=== PATIENT | male | born 1965 | race Caucasian/White ===

== ENCOUNTER 2020-11-30 20:26 | Observation (INO) | payer OTHER, SELFPAY ==
--- NOTE | ~2020-11-30 | US_ITS ---
EXAMINATION: US carotid duplex BI DATE: 12/01/2020 10:08 INDICATION: Gait dysfunction. TECHNIQUE: Grayscale, color Doppler, and pulsed Doppler images of the cervical carotid arteries were obtained. The degree of vessel stenosis is placed in one of the following categories: normal, <50%, 5 0-69%, >=70% but less than near-occlusion, near-occlusion, or total occlusion. Note that percent sten osis relative to normal distal artery lumen diameter is indirectly measured from velocity measurement s as described by Vijay, et al. Radiology 2003; [id number]. COMPARISON: None. FINDINGS: RIGHT: The right common carotid artery (CCA) peak systolic velocity (PSV) is 108 cm/s. The right internal ca rotid artery (ICA) PSV is 72 cm/s. The right ICA end-diastolic velocity (EDV) is 26 cm/s. The right I CA/CCA PSV ratio is 0.7. Grayscale and color Doppler images yield an estimate of <50% diameter reduct ion from plaque in the ICA. There is antegrade flow in the right vertebral artery. LEFT: The left CCA PSV is 105 cm/s. The left ICA PSV is 76 cm/s. The left ICA EDV is 21 cm/s. The left ICA/ CCA PSV ratio is 0.7. Grayscale and color Doppler images yield an estimate of <50% diameter reduction from plaque in the ICA. There is antegrade flow in the left vertebral artery. IMPRESSION: 1. <50% stenosis in the right internal carotid artery. 2. <50% stenosis in the left internal carotid artery. Reviewed, dictated and finalized at location A. RESSED GASES TESTER
--- NOTE | ~2020-11-30 | XR_ITS ---
EXAMINATION: XR elbow LT min 3V DATE: 12/01/2020 12:22 INDICATION: Left elbow pain TECHNIQUE: Anteroposterior, two oblique and lateral views of the left elbow were obtained. COMPARISON: None. FINDINGS: No displaced fracture is identified. An elbow joint effusion is present. The soft tissues a re unremarkable. IMPRESSION: 1. Elbow joint effusion which could reflect radiographically occult fracture. Reviewed, dictated and finalized at location A. BUCKER
--- NOTE | 2020-11-30 20:31 | ADMGEN ---
This patient, Gregorio Acharya, was admitted to Medical Room 254-01. Patient/family oriented to hospital policies and general routines including ID bracelet, bed and alarms, visiting hours, pain management, procedures, bathroom and other care routines, personal items, smoking policy, room service/diet, and visiting hours. Information on how to activate the Rapid Response Team has been discussed. Patient/Family are encouraged to report perceived risks to care and to ask questions if they do not understand what they are told or what they should do.
[2020-11-30 20:41] VITALS: BMI 23.0
[2020-11-30 20:42] VITALS: BP 101/58; PULSE 96; RESP 18; TEMP 36.8; O2SAT 100
[2020-11-30 20:55] VITALS: PULSE 92
--- NOTE | 2020-11-30 21:12 | PC.NURSE ---
Pt sister Alejandra called and stated that he took medication lamootrigine tonight.
--- NOTE | 2020-11-30 22:51 | PM.IMHP ---
H&P: HPI History of Present Illness Date/Time: 11/30/20 22:51 This is a 55-year-old male patient has a past medical history of having seizure disorder. The patient appeared to be very nervous when I started talking to him. His hands were shaking and he was attempting to get out of bed. The patient was a direct admit from [facility]. I had spoke with Dr. landa. The patient has a history of having seizures but tells me he has not had a seizure in a long time and that he still drives. The patient tells me that he has a neurologist at [facility] and is only on 1 medication for seizure disorder. The patient stated that his legs just feel wobbly and that has been bumping into things and he has been holding on to things because he feels like he is going to fall over. The patient stated that this all occurred prior to getting the [employer] COVID vaccine on Friday. However he says that things have gotten worse since he got the vaccine. He feels more weak and had a seizure since he had the COVID vaccine. It was noted that the patient had multiple seizures last night any lives home alone. The patient was slouched down in his wheelchair because he was unable set up because he felt like his seizure was going to come back. He complained of left elbow pain. It was reported that [facility] provider Dr. landa called [facility] who stated that the patient did not need to be transferred there. The patient has not been able to ambulate today. After I did further investigation it was because he was fearful of falling. He stated that his legs feel very weak. He denies having a shuffling walk any denies Parkinson's. He has no complaints of any back pain no urinary incontinence no urinary retention. No fecal retention or incontinence. Patient had elbow pain with positive range of motion. No obvious deformity was noted. His neurologist is Dr. Hollins at [facility]. It was noted that the neurologist the [facility] but refused to accept the patient for transfer. Your provider Dr. landa spoke with Dr. Urieb who agreed to see the patient upon transfer. The patient did have a MRI of the brain which was reported as negative to me. He also had MRI of the spine without MRi of the L-spine without and T-spine without. All reported as negative to me. H&H was slightly low at 11.8 35.3. Platelets 127. Glucose was noted to be 190. CT of the head report was read as the ellis-white matter differential is preserved mild cortical Valium no CT evidence of any acute intracranial process. X-ray of left elbow three views anterior fusion suggestive of supra condyle fracture. . The patient is being admitted for observation on the date of service of 11/30/2020. Chief Complaint: Gait dysfunction and seizure Review of Systems Review of Systems: All systems reviewed & are unremarkable except as noted in HPI and below Constitutional: Constitutional: Reports as per HPI and Reports no additional constitutional complaints Eyes: Eyes: Reports as per HPI and Reports no additional eye complaints ENT: Reports system reviewed and no additional complaints, except as documented and Reports Normal hearing present Cardiovascular: Cardiovascular: Reports no additional cardiovascular complaints Respiratory: Respiratory: Reports no additional respiratory complaints and Reports no additional respiratory complaints Gastrointestinal: Gastrointestinal: Reports as per HPI and Reports no additional gastrointestinal complaints Musculoskeletal: Musculoskeletal: Reports no additional musculoskeletal complaints Integumentary/Breasts: Skin/Breast: Reports system reviewed and no additional complaints, except as docu and Reports as per HPI Neurologic: Reports system reviewed and no additional complaints, except as documented, Reports as per HPI and Reports Normal hearing present Psychiatric: Psychiatric: Reports no additional psychiatric complaints and Reports as per H
[2020-11-30 23:25] LABS: Eosinophils Absolute Auto 0.1 K/mm3 (0-0.3); Eosinophils Percent Auto 1.9 % (0-4.4); Hematocrit 32.9 % (42.0-52.0); Hemoglobin 10.9 g/dL (14.0-18.0); Immature Granulocyte Absolute 0.01 K/mm3 (0.00-0.031); Immature Granulocyte Percent A 0.2 % (0-0.5); Lymphocytes Absolute Auto 1.41 K/mm3 (0.9-3.2); Lymphocytes Percent Auto 26.4 % (18.3-44.2); Mean Corpuscular HGB Conc 33.1 g/dl (32-36); Mean Corpuscular Hemoglobin 31.1 pg (26-34); Mean Corpuscular Volume 93.7 fl (80-100); Mean Platelet Volume 9.1 fl (7.4-10.4); Monocytes Absolute Auto 0.7 K/mm3 (0.1-0.6); Monocytes Percent Auto 13.8 % (2.6-8.5); Neutrophils Absolute Auto 3.1 K/mm3 (1.3-6.7); Neutrophils Percent Auto 57.7 % (45.5-73.1); Platelet Count Result 119 k/mm3 (150-375); Red Blood Count 3.51 M/mm3 (4.6-6.20); Red Cell Distribution Width 13.3 % (11.5-14.5); White Blood Count 5.4 K/mm3 (4.5-10.0)
[2020-11-30 23:36] LABS: Potassium 3.8 mmol/L (3.4-5.0)
[2020-11-30 23:40] LABS: Anion Gap 1 mmol/L (8-16); Blood Urea Nitrogen 14 mg/dL (9-20); Calcium 8.6 mg/dL (8.4-10.2); Carbon Dioxide 35 mmol/L (22-30); Chloride 103 mmol/L (98-107); Estimated CRCL calculation 44 ml/min; Estimated Glomerular Filt Rate > 60; Glucose 117 mg/dL (75-110); Magnesium 1.8 mg/dL (1.6-2.3); Sodium 139 mmol/L (137-145)
[2020-12-01] VITALS (7 sets, daily range): BP systolic 100–126; BP diastolic 57–61; PULSE 75–94; RESP 16–20; TEMP 36.4–37.2; O2SAT 94–100
--- NOTE | 2020-12-01 | ECHO_ITS ---
Patient Info Name: Gregorio Acharya Age: 55 years : 1965 Gender: Male Ht: 60 in Wt: 117 lbs BSA: 1.51 m2 HR: 79 bpm BP: 102 / 61 mmHg Technical Quality: Good Exam Date: 12/01/2020 11:29 AM Exam Location: [facility] Pulmonary Patient Status: Inpatient Admit Date: 11/30/2020 Staff Ordering Physician: Marianne Stack NP [employer]: Jhonny Borges RDCS, RT Attending Provider: Vi Thakur PA-C Referring Physician: Seda CAMPOS; Exam Type: CA echo doppler color flow Study Info Indications R53.1 - Weakness Complete two-dimensional, color flow and Doppler transthoracic echocardiogram is performed. Strain analysis performed. Summary 1. Complete two-dimensional, color flow and Doppler transthoracic echocardiogram is performed. 2. Left ventricular chamber dimension is mildly enlarged. 3. Left ventricular systolic function is mildly reduced, estimated at 45-50%. 4. The left ventricular diastolic function is normal. 5. Global longitudinal strain is abnormal at -15.1. 6. Left atrial chamber dimension is mildly enlarged. 7. There is trace aortic valve regurgitation. 8. There is trace tricuspid valve regurgitation. 9. There is trace pulmonic regurgitation. Left Ventricle Tissue doppler is not performed. Global longitudinal strain is abnormal at -15.1. Left ventricular chamber dimension is mildly enlarged. Left ventricular systolic function is mildly reduced, estimated at 45-50%. The left ventricular diastolic function is normal. Right Ventricle Right ventricular chamber dimension is normal. Right ventricular systolic function is normal. Left Atria Left atrial chamber dimension is mildly enlarged. Right Atria Right atrial chamber dimension is normal. Aortic Valve The aortic valve is trileaflet. There is no aortic valve stenosis. There is trace aortic valve regurgitation. Pulmonic Valve There is trace pulmonic regurgitation. Mitral Valve There is no mitral valve stenosis. There is no mitral valve regurgitation. Tricuspid Valve RVSP is not calculated due to an inadequate TR jet. There is trace tricuspid valve regurgitation. Pericardium/Pleural There is no pericardial effusion. Inferior Vena Cava Normal inferior vena cava with >50% collapse upon inspiration consistent with normal right atrial pressure, 5 mmHg. Aorta The aortic root size at the sinus of Valsalva is normal. Left Ventricular Outflow Tract Name Value Normal LVOT 2D LVOT Diameter 2.2 cm Pulmonic Valve Name Value Normal PV Regurgitation Doppler NH Peak End Diastolic Velocity 113 cm/s Tricuspid Valve Name Value Normal Estimated PAP/RSVP RA Pressure
[2020-12-01 01:44] LABS: Add Urine Microscopic? NO; Appearance Urine Clear (Clear); Bilirubin Urine Negative (Negative); Blood Urine Negative (Negative); Color Urine Yellow (Yellow); Glucose Urine UA Negative (Negative); Ketones Urine Negative (Negative); Leukocyte Esterase Ur Negative LEU/UL (Negative); Nitrate Urine Negative (Negative); Protein Urine Negative (Negative); Specific Grav Ur 1.018 (1.001-1.035); Urobilinogen Urine Negative mg/dL (<2.0)
[2020-12-01 02:25] LABS: Amphetamine Screen Urine Negative (Negative); Barbiturate Screen Urine Negative (Negative); Benzodiazepines Screen Urine Negative (Negative); Cannabinoid Screen Urine Negative (Negative); Cocaine Screen Urine Negative (Negative); Methadone Screen Urine Negative (Negative); Opiate Screen Urine Negative (Negative); Phencyclidine Screen Urine Negative (Negative)
[2020-12-01 05:27] LABS: Basophils Percent Auto 0.2 % (0.2-1.2); Eosinophils Absolute Auto 0.1 K/mm3 (0-0.3); Eosinophils Percent Auto 2.5 % (0-4.4); Hematocrit 32.5 % (42.0-52.0); Hemoglobin 10.7 g/dL (14.0-18.0); Immature Granulocyte Absolute 0.01 K/mm3 (0.00-0.031); Immature Granulocyte Percent A 0.2 % (0-0.5); Lymphocytes Absolute Auto 1.66 K/mm3 (0.9-3.2); Lymphocytes Percent Auto 34.4 % (18.3-44.2); Mean Corpuscular HGB Conc 32.9 g/dl (32-36); Mean Corpuscular Hemoglobin 30.6 pg (26-34); Mean Corpuscular Volume 92.9 fl (80-100); Mean Platelet Volume 9.4 fl (7.4-10.4); Monocytes Absolute Auto 0.6 K/mm3 (0.1-0.6); Monocytes Percent Auto 12.2 % (2.6-8.5); Neutrophils Absolute Auto 2.4 K/mm3 (1.3-6.7); Neutrophils Percent Auto 50.5 % (45.5-73.1); Platelet Count Result 124 k/mm3 (150-375); Red Cell Distribution Width 13.4 % (11.5-14.5); White Blood Count 4.8 K/mm3 (4.5-10.0)
[2020-12-01 05:48] LABS: Alanine Aminotransferase 32 U/L (4-50); Albumin Level 3.1 g/dL (3.5-5.1); Alkaline Phosphatase 55 U/L (38-126); Anion Gap 2 mmol/L (8-16); Aspartate Amino Transferase 63 U/L (17-59); Bilirubin,Total 0.4 mg/dL (0.2-1.3); Blood Urea Nitrogen 11 mg/dL (9-20); Calcium 8.4 mg/dL (8.4-10.2); Carbon Dioxide 33 mmol/L (22-30); Chloride 103 mmol/L (98-107); Estimated CRCL calculation 58 ml/min; Estimated Glomerular Filt Rate > 60; Glucose 92 mg/dL (75-110); Lactic Acid Reflex 0.6 mmol/L (0.7-2.1); Potassium 3.9 mmol/L (3.4-5.0); Sodium 138 mmol/L (137-145)
[2020-12-01 06:31] LABS: Thyroid Stimulating Hormone Reflex 0.405 uIU/mL (0.465-4.68)
[2020-12-01 07:34] LABS: Free T4 Free Thyroxine Reflex 0.89 ng/dL (0.78-2.19)
[2020-12-01 08:41] LABS: Total Triiodothyronine (T3) 1.92 NG/ML (0.97-1.69)
[2020-12-01] MEDS: lamoTRIgine 100 MG TABLET PO ×2 (08:51→20:13)
[2020-12-01] MEDS: lamoTRIgine 25 MG TABLET 50 MG PO ×2 (08:51→20:13)
--- NOTE | 2020-12-01 15:08 | WPDNEUROLOGY ---
Neurology EEG Report General Information Date of Study: 12/01/20 TEST eeg DIAGNOSIS recurrent seizures CONDITION OF RECORDING awake ,drowsy and sleep EEG NUMBER 21 CLINICAL HISTORY patient has a history of seizures. He sees a neurologist at [facility]. He came into the emergency room with complaints of seizures. EEG DESCRIPTION Basic resting occipital frequency consists of large amount of well-organized low to medium voltage 8 to 9 hertz per second alpha admixed with low to medium voltage 5 to 7 hertz per second theta activity. bilateral symmetrical sleep spindles are seen during sleep .hyperventilation not done. Photic stimulation not done. Non paroxysmal. Nonfocal. Nonlateralizing. IMPRESSION No significant abnormalities noted
--- NOTE | 2020-12-01 15:42 | WPDNEURCNPN ---
Assessment and Plan Assessment and plan (1) Neurologic gait dysfunction: Code(s): R26.9 - Unspecified abnormalities of gait and mobility Status: Acute (2) Anxiety: Code(s): F41.9 - Anxiety disorder, unspecified Status: Acute (3) Seizure disorder: Code(s): G40.909 - Epilepsy, unspecified, not intractable, without status epilepticus Status: Chronic Additional Plan status post COVID shot, complain of generalized weakness,difficulties in ambulation in a person who is known to have seizure disorder and has been taking lamotrigine 150 twice a day,question was raised regarding the possibility of post immunization syndrome.at this stage patient looks completely stable, will continue the lamotrigine as such and observe Consult date: 12/01/20 Time Seen: 16:00 HPI: Gregorio Acharya is a 55 year old maleAdmitted to the hospital through the emergency room for the complaints of [place] when he was attempting to get out of bed he was a direct admit from [facility] Emergency room patient is known to have seizure disorder but is still he drives he is being followed and the [facility] clinical be KARI and has been taking only 1 medication for seizure disorder that is lamotrigine 150 mg each 2 tablets daily he reported that his legs felt wobbly and he was bumping into things after getting the COVID Scharff he was transfer from the emergency room to this hospital rachel show that he is not developing began [place] syndrome post vaccination Review of Systems Review of Systems: All systems reviewed & are unremarkable except as noted in HPI and below PMFSH Past Medical History Medical History Seizure disorder Surgical History Surgical History Status post LASIK surgery of both eyes Family History Family History Mother Breast cancer Father Throat cancer Social History Social History Social History: the patient has never been . He has no children. His sister is a durable power deputy prosecuting attorney for healthcare. The patient desires to be a full code. Patient lives in house by himself. 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 The patient states that he is a lifelong nonsmoker. He denies any alcohol, marijuana, or illicit drug use. Smoking status: Never smoker Alcohol intake: never Substance use: never Spiritual care concerns: No Meds Home Medications and Allergies Home Medications Medication Instructions Recorded Confirmed Type lamotrigine 150 mg PO BID 11/30/20 11/30/20 History Allergies Allergy/AdvReac Type Severity Reaction Status Date / Time No Known Allergies Allergy Unknown Unverified 01/07/17 08:48 Vital Signs Vital Signs - 24 hr 11/30/20 20:42 11/30/20 20:55 12/01/20 00:00 Temperature 36.8 C 37.2 C Pulse Rate 96 92 84 Respiratory Rate 18 18 Blood Pressure 101/58 L 103/59 L Pulse Oximetry 100 94 12/01/20 04:00 12/01/20 08:00 12/01/20 12:00 Temperature 36.9 C 36.9 C 36.7 C Pulse Rate 81 84 86 Respiratory Rate 20 16 16 Blood Pressure 102/61 126/58 L 114/57 L Pulse Oximetry 95 99 100 Exam Const: General: cooperative, comfortable, no acute distress, anxious and confusion Nutritional Appearance: average body habitus and thin Orientation/consciousness: oriented to person and oriented to place Limitations: behavioral limitations HENMT: Head: normocephalic Ears: hearing grossly normal bilaterally General nose exam: No nasal discharge present Face and sinus: normal facial exam Mouth: Yes Normal oral and palatal mucosa present Eyes: General: appearance normal, both eyes and all related structures Visual Forman: normal visual forman by confrontation Alignment and Position: alignment normal Periorbital: periorbital findings normal Eyelids: e
--- NOTE | 2020-12-01 15:56 | PM.IMPN ---
Progress Note: A&P Assessment and Plan (1) Seizure disorder: Code(s): G40.909 - Epilepsy, unspecified, not intractable, without status epilepticus Status: Chronic Assessment and Plan: EEG demonstrated no significant abnormalities. He follows with Dr. Obrien at [facility] for primary neurology. It is likely that the vaccine caused fatigue and this may have provoked his seizures. I suspect that he was post-ictal yesterday which may have contributed to his gait dysfunction which has improved. Continue lamotrigine Continue ativan PRN Continue seizure precautions (2) Neurologic gait dysfunction: Code(s): R26.9 - Unspecified abnormalities of gait and mobility Status: Acute Assessment and Plan: Significantly improved. He reports that he had a very difficult time walking yesterday and had to scoot on the floor with his elbow. He had imaging at outside hospital prior to transfer including: CT brain with no acute pathology. MRI brain without evidence of mass, acute infarct, or other adverse process. MRI cervical spine showed no fracture but did show focal syringomyelia measuring 7mm longitudinal at C5 level, 2mm anterolisthesis of C6 on C7 without facet dislocation, and degenerative disc disease with significant stenosis at C4-C5 and C6-C7, mild to moderate canal stenosis at C3 to C6. MRI thoracic spine showed no fracture, mild degenerative disc disease, and thoracic kyphosis. MRI lumbar spine showed no fracture and degenerative disc disease and facet arthropathy without significant stenosis at L5-S1. Findings discussed with Dr. Montero who does not feel this is contributing to current symptoms. I suspect this may have been secondary to a post-ictal state as he was felt to have a seizure at work Friday by his coworkers and several seizures Friday while at home. He was up walking with the walker today. He does have some chronic balance issues but feels that he is getting close to his baseline. Continue PT/OT Neurology is following with input appreciated (3) Abnormal TSH: Code(s): R79.89 - Other specified abnormal findings of blood chemistry Status: Acute Assessment and Plan: TSH 0.405 with free T4 0.89 and total T3 1.92 on labs from 12/01. Plan for repeat TSH w/ reflex in 4-6 weeks (4) Occult fracture of elbow: Code(s): S42.409A - Unspecified fracture of lower end of unspecified humerus, initial encounter for closed fracture Status: Acute Assessment and Plan: He reports having to use his left elbow to move around his house. Plain film of the left elbow demonstrates elbow joint effusion which could reflect radiographically occult fracture. Sling placed Orthopedic surgery consulted and input appreciated Continue analgesics as needed (5) HFrEF (heart failure with reduced ejection fraction): Code(s): I50.20 - Unspecified systolic (congestive) heart failure Status: Acute Assessment and Plan: Echocardiogram performed 12/01/20 demonstrated EF mildly reduced at 45-50% with normal diastolic function. He appears euvolemic at this time. BP seems to run on the low side but will start low-dose metoprolol and lisinopril and observe to see how he tolerates this He will need to follow-up with cardiology outpatient (6) Syringomyelia: Code(s): G95.0 - Syringomyelia and syringobulbia Status: Acute Assessment and Plan: MRI cervical spine showed no fracture but did show focal syringomyelia measuring 7mm longitudinal at C5 level. Discussed with Dr. Montero who does not feel this is contributing to his current symptoms. Neurology following Will need follow-up with primary neurologist and consideration for referral to neurosurgery (7) Degenerative disc disease: Status: Acute Assessment and Plan: Cervical, thoracic, and lumbar on MRI performed at outside facility. Significant stenosis at C4-C5 and C
[2020-12-02] VITALS (9 sets, daily range): BP systolic 103–137; BP diastolic 68–83; PULSE 65–78; RESP 16–21; TEMP 36.3–36.6; O2SAT 99–100
[2020-12-02 05:49] LABS: Hematocrit 34.6 % (42.0-52.0); Hemoglobin 11.2 g/dL (14.0-18.0); Mean Corpuscular HGB Conc 32.4 g/dl (32-36); Mean Corpuscular Hemoglobin 29.7 pg (26-34); Mean Corpuscular Volume 91.8 fl (80-100); Mean Platelet Volume 9.6 fl (7.4-10.4); Platelet Count Result 157 k/mm3 (150-375); Red Blood Count 3.77 M/mm3 (4.6-6.20)
[2020-12-02 06:04] LABS: Alanine Aminotransferase 34 U/L (4-50); Albumin Level 3.4 g/dL (3.5-5.1); Alkaline Phosphatase 53 U/L (38-126); Anion Gap 0 mmol/L (8-16); Aspartate Amino Transferase 70 U/L (17-59); Bilirubin,Total 0.4 mg/dL (0.2-1.3); Blood Urea Nitrogen 13 mg/dL (9-20); Calcium 8.8 mg/dL (8.4-10.2); Carbon Dioxide 37 mmol/L (22-30); Chloride 102 mmol/L (98-107); Estimated CRCL calculation 64 ml/min; Estimated Glomerular Filt Rate > 60; Glucose 87 mg/dL (75-110); Potassium 3.8 mmol/L (3.4-5.0); Sodium 139 mmol/L (137-145)
[2020-12-02 06:06] LABS: Transferrin 210 mg/dL (206-381)
[2020-12-02 06:11] LABS: Iron 107 ug/dL (49-181)
[2020-12-02 06:21] LABS: Percent Iron Saturation 42 % (20-50)
[2020-12-02] MEDS: lisinopriL 2.5 MG TABLET PO (08:13)
[2020-12-02] MEDS: lamoTRIgine 25 MG TABLET 50 MG PO ×2 (08:13→21:10)
[2020-12-02] MEDS: lamoTRIgine 100 MG TABLET PO ×2 (08:13→21:09)
[2020-12-02] MEDS: METOPROLOL SUCCINATE EXT REL 12.5 MG TABCR PO (08:13)
--- NOTE | 2020-12-02 09:32 | PM.IMPN ---
Progress Note: A&P Assessment and Plan (1) Seizure disorder: Code(s): G40.909 - Epilepsy, unspecified, not intractable, without status epilepticus Status: Chronic Assessment and Plan: EEG demonstrated no significant abnormalities. He follows with Dr. Obrien at [facility] for primary neurology. It is likely that the vaccine caused fatigue resulting in a provoked seizure. I suspect that he was post-ictal 11/30 causing gait dysfunction which has resolved. Continue lamotrigine. Discussed with Dr. Izquierdo refrigeration mechanic helper for Dr. Obrien who agreed that no dose adjustment is required at this time. Continue ativan PRN Continue seizure precautions (2) Neurologic gait dysfunction: Code(s): R26.9 - Unspecified abnormalities of gait and mobility Status: Acute Assessment and Plan: Significantly improved. He reports that he had a very difficult time walking yesterday and had to scoot on the floor with his elbow. CT brain, MRI brain, and MRI cervical, thoracic, and lumbar spine negative for acute pathology. I suspect this was secondary to a post-ictal state as he was felt to have a seizure at work Friday by his coworkers and several seizures Friday while at home. He is up walking in the halls and doing very well. Continue PT/OT. Discussing outpatient therapy and home with family vs. rehab per PT recommendations. Discuss with care coordination who is going to speak with the family. Neurology is following with input appreciated (3) Abnormal TSH: Code(s): R79.89 - Other specified abnormal findings of blood chemistry Status: Acute Assessment and Plan: TSH 0.405 with free T4 0.89 and total T3 1.92 on labs from 12/01. Plan for repeat TSH w/ reflex in 4-6 weeks (4) Occult fracture of elbow: Code(s): S42.409A - Unspecified fracture of lower end of unspecified humerus, initial encounter for closed fracture Status: Acute Assessment and Plan: He reports having to use his left elbow to move around his house on since he could not walk due to post-ictal state. Plain film of the left elbow demonstrates elbow joint effusion which could reflect radiographically occult fracture. Sling placed Orthopedic surgery consulted and input appreciated Continue analgesics as needed (5) HFrEF (heart failure with reduced ejection fraction): Code(s): I50.20 - Unspecified systolic (congestive) heart failure Status: Acute Assessment and Plan: Echocardiogram performed 12/01/20 demonstrated EF mildly reduced at 45-50% with normal diastolic function. He appears euvolemic at this time. BP seems to run on the low side. Initiated low-dose metoprolol and lisinopril and will observe to see how he tolerates this. He will need to follow-up with his PCP and cardiology outpatient (6) Syringomyelia: Code(s): G95.0 - Syringomyelia and syringobulbia Status: Acute Assessment and Plan: MRI cervical spine showed no fracture but did show focal syringomyelia measuring 7mm longitudinal at C5 level. Discussed with Dr. Montero who does not feel this is contributing to his current symptoms. Neurology following Will need follow-up with primary neurologist and consideration for referral to neurosurgery Discussed with Dr. Izquierdo, neurologist refrigeration mechanic helper for his primary neurologist, Dr. Obrien, who notes this is a chronic finding, seen on his prior imaging, with no need for acute intervention. He will continue follow-up with Dr. Obrien and I discussed concerning symptoms to watch for with the patient. (7) Degenerative disc disease: Status: Acute Assessment and Plan: Cervical, thoracic, and lumbar on MRI performed at outside facility. Significant stenosis at C4-C5 and C6-C7, mild to moderate canal stenosis at C3 to C6, mild thoracic degenerative disc disease, and degenerative disc disease and facet arthropathy without significant stenosis at L5-S1.
--- NOTE | 2020-12-02 11:31 | PM.CNOR ---
Assessment and Plan Additional Plan Patient is a 55-year-old gentleman who was admitted in transfer from [place] for intractable seizures. He has been stabilized. The had an EEG and consultation with Dr. Dooley the neurologist here. On admission he was noted to have some abrasions and some mild posterior swelling at the left elbow. He had x-rays which demonstrated an anterior effusion with elevation of the fat pad but I could not see a fracture on the multiple views of the left elbow. Patient does not think he fell but he believes that he was crawling during his seizures and injured his left elbow at that time but it is not clear and he cannot rule out having traumatized at more than just crawling on his elbow. He still has some agitation and he speaks very quickly and repeats himself frequently. Was asked to see him about his elbow effusion. I reviewed the x-ray and the findings are as discussed above. On exam today he has range of motion from 0-140 degrees. He has some soreness in the elbow at 0 and at 140 ?. He had noted discomfort with range of motion within those extremes he had full pronation supination without discomfort. I could not identify any areas of focal tenderness in the elbow. He does have some faint ecchymosis over the olecranon bursa and some very slight swelling in that area and they are 3 tiny abrasions about a quarter-inch each in 3 different areas around the posterior elbow. There is no instability to valgus or varus stress. He is using his hands symmetrically and rather rigorously while he is speaking moving his hands accordingly. He had a 2+ radial artery pulse. He denied any shoulder or wrist pain he had normal sensation left hand had normal function of his wrist and digits. My impression is that he has a traumatic effusion the elbow and as such he may have an occult fracture. I have discussed with him that bearing weight on the left hand or lifting pushing pulling with the left hand may have adverse consequences if he has a nondisplaced fracture. The fracture may become displaced or may go on to delayed or nonunion. As such I have recommended that he use the arm sling which I personally applied and confirmed that it fits him well. I showed him how to use the thumb strap to keep the sling in place. I will ask physical therapy to work with him with a one-handed walker. He is still little bit unsteady on his feet and needs some support. Naif walker can also be used with his right hand. I would like to see him in the office in about 9 days and obtain new x-rays of the left elbow at that time. I do not think he will require any pain medication for the elbow as he is not having much discomfort now and if he has increased pain it would indicate the is probably using a too much. History of Present Illness HPI Consult date: 12/02/20 Chief complaint: Seizure disorder, ambulatory dysfunction [facility] Past Medical History Medical History (Updated 12/02/20 @ 09:08 by Vi Thakur PA-C) Degenerative disc disease HFrEF (heart failure with reduced ejection fraction) Echo from 12/01/20 demonstrates EF 45-50% and normal diastolic function Seizure disorder Surgical History Surgical History Status post LASIK surgery of both eyes Family History Family History Mother Breast cancer Father Throat cancer Social History Social History Social History: the patient has never been . He has no children. His sister is a durable power commercial real estate attorney for healthcare. The patient desires to be a full code. Patient lives in house by himself. 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 The patient states that he is a lifelong nonsmoker. He denies any alcohol, marijuana, or illicit drug use. Smoking status: Never smoker Alcohol intake: never Substance use: ne
[2020-12-03] VITALS (8 sets, daily range): BP systolic 92–150; BP diastolic 50–82; PULSE 65–86; RESP 16–20; TEMP 36.1–36.9; O2SAT 97–100
--- NOTE | 2020-12-03 03:06 | PC.NURSE ---
Daylight Savings Time For Daylight Savings Time Ending in the Fall - Clocks are moved back. For Daylight Savings Time Beginning in the Spring - Clocks are moved ahead. For [facility], the time of change occurs at 0200 hrs. Time is taken from the paymaster of purses. This entry on the patient's chart recognizes the change in time reflected during documentation. Example: 2 entries for vital signs may be charted for 0200 hrs.
[2020-12-03] MEDS: lamoTRIgine 100 MG TABLET PO ×2 (08:39→20:44)
[2020-12-03] MEDS: METOPROLOL SUCCINATE EXT REL 12.5 MG TABCR PO (08:39)
[2020-12-03] MEDS: lamoTRIgine 25 MG TABLET 50 MG PO ×2 (08:39→20:44)
[2020-12-03] MEDS: lisinopriL 2.5 MG TABLET PO (08:39)
--- NOTE | 2020-12-03 12:05 | PM.IMPN ---
Progress Note: A&P Assessment and Plan (1) Need for discharge planning: Status: Acute Assessment and Plan: Planning for rehab at discharge given PT/OT recommendations, patient preference and motivation to receive rehab to help gait and get back to working as soon as possible. Care coordination is working on placement COVID-19 test ordered for placement purposes (2) Seizure disorder: Code(s): G40.909 - Epilepsy, unspecified, not intractable, without status epilepticus Status: Chronic Assessment and Plan: EEG demonstrated no significant abnormalities. He follows with Dr. Obrien at [facility] for primary neurology. It is likely that the vaccine caused fatigue resulting in a provoked seizure. I suspect that he was post-ictal 11/30 causing gait dysfunction which has resolved. Continue lamotrigine. Discussed with Dr. Izquierdo home economics expert for Dr. Obrien who agreed that no dose adjustment is required at this time. Continue ativan PRN Continue seizure precautions No driving for at least 3 months and until cleared from neurology (3) Neurologic gait dysfunction: Code(s): R26.9 - Unspecified abnormalities of gait and mobility Status: Acute Assessment and Plan: Significantly improved. He reports that he had a very difficult time walking yesterday and had to scoot on the floor with his elbow. CT brain, MRI brain, and MRI cervical, thoracic, and lumbar spine negative for acute pathology. I suspect this was secondary to a post-ictal state as he was felt to have a seizure at work Friday by his coworkers and several seizures Friday while at home. He is up walking in the halls and doing very well. Continue PT/OT. Rehab is recommended and the patient and family prefer rehab. Neurology is following with input appreciated (4) Abnormal TSH: Code(s): R79.89 - Other specified abnormal findings of blood chemistry Status: Acute Assessment and Plan: TSH 0.405 with free T4 0.89 and total T3 1.92 on labs from 12/01. Plan for repeat TSH w/ reflex in 4-6 weeks (5) Occult fracture of elbow: Code(s): S42.409A - Unspecified fracture of lower end of unspecified humerus, initial encounter for closed fracture Status: Acute Assessment and Plan: He reports having to use his left elbow to move around his house on since he could not walk due to post-ictal state. Plain film of the left elbow demonstrates elbow joint effusion which could reflect radiographically occult fracture. Sling placed Orthopedic surgery consulted and input appreciated Continue analgesics as needed (6) HFrEF (heart failure with reduced ejection fraction): Code(s): I50.20 - Unspecified systolic (congestive) heart failure Status: Acute Assessment and Plan: Echocardiogram performed 12/01/20 demonstrated EF mildly reduced at 45-50% with normal diastolic function. He appears euvolemic at this time. Low dose metoprolol and lisinopril initiated and his blood pressure is tolerating this well He will need to follow-up with his PCP and cardiology outpatient. I discussed echo findings with the patient and his sister today. (7) Syringomyelia: Code(s): G95.0 - Syringomyelia and syringobulbia Status: Acute Assessment and Plan: MRI cervical spine showed no fracture but did show focal syringomyelia measuring 7mm longitudinal at C5 level. Discussed with Dr. Montero who does not feel this is contributing to his current symptoms. Neurology following Will need follow-up with primary neurologist and consideration for referral to neurosurgery Discussed with Dr. Izquierdo, neurologist home economics expert for his primary neurologist, Dr. Obrien, who notes this is a chronic finding, seen on his prior imaging, with no need for acute intervention. He will continue follow-up with Dr. Obrien and I discussed concerning symptoms to watch for with the patient. (8) Degenerative
[2020-12-04 01:45] VITALS: BP 106/74; PULSE 68; RESP 18; TEMP 36.2; O2SAT 97
[2020-12-04 06:31] VITALS: BP 108/71; PULSE 74; RESP 16; TEMP 36.6; O2SAT 98
[2020-12-04 08:14] VITALS: PULSE 68
[2020-12-04] MEDS: METOPROLOL SUCCINATE EXT REL 12.5 MG TABCR PO (08:14)
[2020-12-04] MEDS: lamoTRIgine 25 MG TABLET 50 MG PO ×2 (08:14→20:55)
[2020-12-04] MEDS: lamoTRIgine 100 MG TABLET PO ×2 (08:14→20:56)
[2020-12-04] MEDS: lisinopriL 2.5 MG TABLET PO (08:15)
[2020-12-04 12:00] VITALS: BP 106/68; PULSE 77; RESP 16; TEMP 36.7; O2SAT 100
[2020-12-04 12:59] LABS: SARS-CoV-2 RNA PCR Negative
--- NOTE | 2020-12-04 15:56 | PM.IMPN ---
Progress Note: A&P Assessment and Plan (1) Need for discharge planning: Status: Acute Assessment and Plan: Planning for rehab at discharge given PT/OT recommendations, patient preference and motivation to receive rehab to help gait and get back to working as soon as possible. Care coordination is working on placement [facility] is first preference if this is approved by his insurance. Insurance authorization is pending. (2) Seizure disorder: Code(s): G40.909 - Epilepsy, unspecified, not intractable, without status epilepticus Status: Chronic Assessment and Plan: EEG demonstrated no significant abnormalities. He follows with Dr. Obrien at [facility] for primary neurology. It is likely that the vaccine caused fatigue resulting in a provoked seizure. I suspect that he was post-ictal 11/30 causing gait dysfunction which has resolved. Continue lamotrigine. Discussed with Dr. Izquierdo at [facility], [place] for Dr. Obrien, who agreed that no dose adjustment is required at this time. Continue ativan PRN Continue seizure precautions No driving for at least 3 months and until cleared from neurology (3) Neurologic gait dysfunction: Code(s): R26.9 - Unspecified abnormalities of gait and mobility Status: Acute Assessment and Plan: Significantly improved. He reported that he had a very difficult time walking the day prior to admission and had to scoot on the floor with his elbow. CT brain, MRI brain, and MRI cervical, thoracic, and lumbar spine negative for acute pathology. I suspect this was secondary to a post-ictal state as he was felt to have a seizure at work Friday by his coworkers and several seizures Friday while at home. He is up walking in the halls and doing very well. Continue PT/OT. Rehab is recommended and the patient and family prefer rehab. Neurology is following with input appreciated (4) Abnormal TSH: Code(s): R79.89 - Other specified abnormal findings of blood chemistry Status: Acute Assessment and Plan: TSH 0.405 with free T4 0.89 and total T3 1.92 on labs from 12/01. Plan for repeat TSH w/ reflex in 4-6 weeks (5) Occult fracture of elbow: Code(s): S42.409A - Unspecified fracture of lower end of unspecified humerus, initial encounter for closed fracture Status: Acute Assessment and Plan: He reports having to use his left elbow to move around his house on since he could not walk due to post-ictal state. Plain film of the left elbow demonstrates elbow joint effusion which could reflect radiographically occult fracture. Sling placed Orthopedic surgery consulted and input appreciated. Orthopedic surgery recommends continued arm sling and thumb strap, PT with one-handed walker or ralph walker, and follow-up 12/11/20 for repeat x-rays of the left elbow. Continue analgesics as needed (6) HFrEF (heart failure with reduced ejection fraction): Code(s): I50.20 - Unspecified systolic (congestive) heart failure Status: Acute Assessment and Plan: Echocardiogram performed 12/01/20 demonstrated EF mildly reduced at 45-50% with normal diastolic function. He appears euvolemic at this time. Low dose metoprolol and lisinopril initiated. BP on the softer side. Will need to see how he tolerates this. He will need to follow-up with his PCP and cardiology outpatient. I discussed echo findings with the patient and his sister. (7) Syringomyelia: Code(s): G95.0 - Syringomyelia and syringobulbia Status: Acute Assessment and Plan: MRI cervical spine showed no fracture but did show focal syringomyelia measuring 7mm longitudinal at C5 level. Discussed with Dr. Montero who does not feel this is contributing to his current symptoms. Neurology following Will need follow-up with primary neurologist and consideration for referral to neurosurgery Discussed with Dr. Izquierdo, neurologist [place] for his primary n
[2020-12-04 16:00] VITALS: BP 112/68; PULSE 79; RESP 16; TEMP 36.9
[2020-12-04] MEDS: ENOXAPARIN 40 MG/0.4 ML SYRINGE SUB-Q (20:56)
[2020-12-04 22:00] VITALS: BP 150/67; PULSE 78; RESP 20; TEMP 36.6; O2SAT 99
[2020-12-05 02:06] VITALS: BP 131/77; PULSE 64; RESP 21; TEMP 36.2; O2SAT 100
[2020-12-05 05:40] LABS: Hemoglobin 11.2 g/dL (14.0-18.0); Mean Corpuscular HGB Conc 32.9 g/dl (32-36); Mean Corpuscular Hemoglobin 30.2 pg (26-34); Mean Corpuscular Volume 91.6 fl (80-100); Mean Platelet Volume 9.4 fl (7.4-10.4); Platelet Count Result 242 k/mm3 (150-375); Red Blood Count 3.71 M/mm3 (4.6-6.20); Red Cell Distribution Width 12.9 % (11.5-14.5); White Blood Count 5.3 K/mm3 (4.5-10.0)
[2020-12-05 05:51] LABS: Alanine Aminotransferase 35 U/L (4-50); Albumin Level 3.2 g/dL (3.5-5.1); Alkaline Phosphatase 52 U/L (38-126); Anion Gap -2 mmol/L (8-16); Aspartate Amino Transferase 35 U/L (17-59); Bilirubin,Total 0.2 mg/dL (0.2-1.3); Blood Urea Nitrogen 9 mg/dL (9-20); Calcium 8.7 mg/dL (8.4-10.2); Carbon Dioxide 38 mmol/L (22-30); Chloride 103 mmol/L (98-107); Estimated CRCL calculation 64 ml/min; Estimated Glomerular Filt Rate > 60; Glucose 84 mg/dL (75-110); Potassium 4.2 mmol/L (3.4-5.0); Sodium 139 mmol/L (137-145)
[2020-12-05 06:00] VITALS: BP 118/69; PULSE 66; RESP 18; TEMP 36.7; O2SAT 97
[2020-12-05 06:42] LABS: Hepatitis B Surface Antigen Negative (Negative)
[2020-12-05 06:48] LABS: HAV RESULT Negative (Negative); Hepatitis B Core IgM Result Negative (Negative)
[2020-12-05 06:59] LABS: Hepatitis C Virus Antibody Negative (Negative)
[2020-12-05 08:00] VITALS: BP 125/57; PULSE 59; RESP 16; TEMP 36.3; O2SAT 96
[2020-12-05 08:47] VITALS: PULSE 60
[2020-12-05] MEDS: METOPROLOL SUCCINATE EXT REL 12.5 MG TABCR PO (08:47)
[2020-12-05] MEDS: lisinopriL 2.5 MG TABLET PO (08:47)
[2020-12-05] MEDS: lamoTRIgine 25 MG TABLET 50 MG PO (08:47)
[2020-12-05] MEDS: lamoTRIgine 100 MG TABLET PO (08:47)
--- NOTE | 2020-12-05 11:56 | PM.IMPN ---
Progress Note: A&P Assessment and Plan (1) Need for discharge planning: Status: Acute Assessment and Plan: Planning for rehab at discharge given PT/OT recommendations, patient preference and motivation to receive rehab to help gait and get back to working as soon as possible. Care coordination is working on placement [facility] is first preference if this is approved by his insurance. Insurance authorization is pending. Patient and family state today that if unimproved by [facility], patient would like to return home. Not interested in SNF placement. Patient is stable for discharge pending discharge arrangements. (2) Seizure disorder: Code(s): G40.909 - Epilepsy, unspecified, not intractable, without status epilepticus Status: Chronic Assessment and Plan: EEG demonstrated no significant abnormalities. He follows with Dr. Obrien at [facility] for primary neurology. It is likely that the vaccine caused fatigue resulting in a provoked seizure. I suspect that he was post-ictal 11/30 causing gait dysfunction which has resolved. Continue lamotrigine at current dose of 150 mg b.i.d.. [address] Izquierdo, neurologist at [facility] bronc buster for Dr. Obrien, who agreed that no dose adjustment is required at this time. Continue ativan PRN Continue seizure precautions No driving for at least 3 months and until cleared from neurology. He will need to follow-up with his primary neurologist. (3) Neurologic gait dysfunction: Code(s): R26.9 - Unspecified abnormalities of gait and mobility Status: Acute Assessment and Plan: Significantly improved. He reported that he had a very difficult time walking the day prior to admission and had to scoot on the floor with his elbow. CT brain, MRI brain, and MRI cervical, thoracic, and lumbar spine negative for acute pathology. I suspect this was secondary to a post-ictal state as he was felt to have a seizure at work Friday by his coworkers and several seizures Friday while at home. He has since been up walking in the halls and doing very well. Continue PT/OT. Rehab is recommended and the patient and family prefer inpatient rehab. Care coordination following as above. Neurology is following with input appreciated (4) Abnormal TSH: Code(s): R79.89 - Other specified abnormal findings of blood chemistry Status: Acute Assessment and Plan: TSH 0.405 with free T4 0.89 and total T3 1.92 on labs from 12/01. Plan for repeat TSH w/ reflex in 4-6 weeks (5) Occult fracture of elbow: Code(s): S42.409A - Unspecified fracture of lower end of unspecified humerus, initial encounter for closed fracture Status: Acute Assessment and Plan: He reports having to use his left elbow to scoot around his house on since he could not walk due to post-ictal state. Plain film of the left elbow demonstrates elbow joint effusion which could reflect radiographically occult fracture. Sling placed Orthopedic surgery consulted and input appreciated. Orthopedic surgery recommends continued arm sling and thumb strap, PT with one-handed walker or ralph walker. Follow-up 12/11/[address] Bucio for repeat x-rays of the left elbow. Continue analgesics as needed (6) HFrEF (heart failure with reduced ejection fraction): Code(s): I50.20 - Unspecified systolic (congestive) heart failure Status: Acute Assessment and Plan: Echocardiogram performed 12/01/20 demonstrated EF mildly reduced at 45-50% with normal diastolic function. He appears euvolemic at this time. Low dose metoprolol and lisinopril initiated. BP being monitored and is remaining stable. He appears to be tolerating these medications. He will need to follow-up with his PCP and cardiology outpatient. Echo findings have been discussed with patient and his sister. (7) Syringomyelia: Code(s): G95.0 - Syringomyelia and syringobulbia Status: Acute Asse
[2020-12-05 12:00] VITALS: BP 132/82; PULSE 81; RESP 16; TEMP 36.9; O2SAT 100
--- NOTE | 2020-12-05 16:40 | PM.DS ---
DS: Admitting Diagnosis Admitting Diagnosis Admitting Diagnosis: Seizure disorder DS: Discharge Diagnosis Discharge Diagnosis (1) Need for discharge planning: Status: Acute Assessment and Plan: Patient family hope to have patient go to [facility] to allow him to have [facility] given patient's preference and motivation to return to work as soon as possible. Unfortunately patient was denied authorization for [facility]. Patient did not wish to go to SNF, therefore will return home with his sister and will attend outpatient PT/OT. Referral was provided. Long discussion with patient and family that if he has difficulty ambulating at home, he should contact his primary care provider immediately and alternate arrangements can be considered. (2) Seizure disorder: Code(s): G40.909 - Epilepsy, unspecified, not intractable, without status epilepticus Status: Chronic Assessment and Plan: EEG demonstrated no significant abnormalities. He follows with Dr. Obrien at [facility] for primary neurology. It is likely that the vaccine caused fatigue resulting in a provoked seizure. He was likely post-ictal 11/30 causing gait dysfunction which improved. Case was discussed with Dr. Izquierdo, neurologist at [facility] program management professional for Dr. Obrien, who recommended continuing patients current dose of lamotrigine at 150 mg bid. Seizure precautions were initiated. He was educated that he cannot drive for at least 3 months and he must be cleared by neurology. He has follow-up scheduled with his primary neurologist at the end of the month. (3) Neurologic gait dysfunction: Code(s): R26.9 - Unspecified abnormalities of gait and mobility Status: Acute Assessment and Plan: He reported that he had a very difficult time walking the day prior to admission and had to scoot on the floor with his elbow. CT brain, MRI brain, and MRI cervical, thoracic, and lumbar spine negative for acute pathology. I suspect this was secondary to a post-ictal state as he was felt to have a seizure at work Friday by his coworkers and several seizures Friday while at home. He was evaluated by PT/OT. His gait improved significantly. He was able to walk around the halls independently and was doing well. Fall precautions discussed. (4) Abnormal TSH: Code(s): R79.89 - Other specified abnormal findings of blood chemistry Status: Acute Assessment and Plan: TSH 0.405 with free T4 0.89 and total T3 1.92 on labs from 12/01. Plan for repeat TSH w/ reflex in 4-6 weeks. Findings discussed with patient and he is aware of need for repeat testing. (5) Occult fracture of elbow: Code(s): S42.409A - Unspecified fracture of lower end of unspecified humerus, initial encounter for closed fracture Status: Acute Assessment and Plan: He reports having to use his left elbow to scoot around his house on since he could not walk due to gait dysfunction. Plain film of the left elbow demonstrates elbow joint effusion which could reflect radiographically occult fracture. He was seen in consultation by Orthopedic surgery. He will continue wearing an arm sling with some strap. Continue with 1 handed walker ralph walker. He will continue outpatient PT/OT. He will follow-up on 12/11/[address] Bucio for repeat x-rays of the left elbow. (6) HFrEF (heart failure with reduced ejection fraction): Code(s): I50.20 - Unspecified systolic (congestive) heart failure Status: Acute Assessment and Plan: Echocardiogram performed 12/01/20 demonstrated EF mildly reduced at 45-50% with normal diastolic function. He was euvolemic. He was started on low-dose metoprolol and lisinopril. BP remained stable with this medication. He will need follow up with PCP and will benefit from referral to cardiology. (7) Syringomyelia: Code(s): G95.0 - Syringomyelia and syringobulbia Status: Acute Assessment and Plan: Chronic.
== END 2020-12-05 17:14 | disposition home or self-care (01) ==
PROVIDERS: Nurse Practitioner; Physician Assistant; Admitting Provider Internal Medicine; PCP Family Medicine; Visit Provider Physician Assistant
DX: G40.909 Epilepsy, unspecified, not intractable, without status epilepticus (principal); R26.9 Unspecified abnormalities of gait and mobility; R79.89 Other specified abnormal findings of blood chemistry; S42.409A Unspecified fracture of lower end of unspecified humerus, initial encounter for closed fracture; I50.20 Unspecified systolic (congestive) heart failure; G95.0 Syringomyelia and syringobulbia; F41.9 Anxiety disorder, unspecified; R53.1 Weakness; I65.23 Occlusion and stenosis of bilateral carotid arteries; M50.323 Other cervical disc degeneration at C6-C7 level; M51.34 Other intervertebral disc degeneration, thoracic region; M51.37 Other intervertebral disc degeneration, lumbosacral region; R03.0 Elevated blood-pressure reading, without diagnosis of hypertension; X58.XXXA Exposure to other specified factors, initial encounter; Z20.822 Contact with and (suspected) exposure to COVID-19
CPT/HCPCS: 36415; 73080; 80048; 80053; 80074; 80307; 81003; 82607; 82728; 82746; 83540; 83550; 83605; 83735; 84439; 84443; 84466; 84480; 85025; 85027; 93306; 93880; 95816; 96372; 96375; 97110; 97116; 97161; 97165; 97530; 97535; A4565; A9270; C9803; G0378; J1650; U0003; U0005

== ENCOUNTER 2021-01-08 12:30 | Outpatient (RCR) | payer OTHER, SELFPAY ==
--- NOTE | 2020-12-08 15:07 | PTOPEVAL ---
PHYSICAL THERAPY EVALUATION Thank you for referring Gregorio Acharya to [facility].? Randy was evaluated with a dx of gait abnormality/balance deficits. The patient is scheduled to be seen for therapy? 2 x/week for 4 weeks. Please review, sign, date and return this plan of care JESSICA. I agree with and certify that the following plan of care is medically necessary. Referring Physician Date Attending Provider: Naila Kimbrough PA-C Referring Provider: Neville Masters MD *PT Outpatient Evaluation Start: 12/08/20 14:02 Freq: Status: Active Protocol: Document 12/08/20 14:02 MLV (Rec: 12/08/20 14:46 MLV [id number]) Assessment Status Evaluation Evaluation Information Problem Diagnosis gait disorder Onset 1 year or more Cause no injury/event Additional Evaluation Detail Patient reports a decline in balance that has worsened over last year. The patient was hospitalized recently due to pneumonia/COVID and seizures ( home 1 week now). The patient is enrolled in a memory care program. The patient now feels fearful of falling and watches his feet to prevent falling. The patient lives alone in a 1 story house with 1 step into home. Family is nearby to help with meals and transportation. 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 The patient uses no device for gait. Pain Assessment Timing of Pain Assessment Timing of Pain Assessment Assessment Self Report Self Report Pain Level 0 Pain Score Pain Score 0: Self Report Lower Extremity Range of Motion General Lower Extremity Range of Motion Reason Not Measured WNL/Left,WNL/Right Lower Extremity Muscle Strength Testing General Lower Extremity Strength Reason Not Measured WFL/Left,WFL/Right Posture Posture Standing Position Posture Evaluation View all Head/C-Spine Posture C-Spine Flattened,Forward Head Thoracic Spine Posture Neutral Lumbar Spine Posture Flattened Shoulder Posture (L) Rounded,(R) Rounded,(L) Forward,(R) Forward Arm Posture (L) Internally Rotated,(R) Internally Rotated Pel
--- NOTE | 2021-01-08 13:39 | PTOPEVAL ---
PHYSICAL THERAPY DISCHARGE Thank you for referring Gregorio Acharya to [facility].? The patient has been treated 10 visits for the dx of gait abnormality. The patient has met his goals. Please review, sign, date and return this plan of care. I agree with and certify the following plan of care. Referring Physician Date Attending Provider: Naila Kimbrough PA-C Referring Provider: Neville Masters MD *PT Outpatient [place] Start: 12/08/20 14:02 Freq: Status: Active Protocol: Document 01/08/21 12:36 MLV (Rec: 01/08/21 13:24 MLV [id number]) Therapy Assessment Status Assessment Status Assessment Status Discharge Evaluation Information Problem Diagnosis gait disorder Onset 1 year or more Cause no injury/event Additional Evaluation Detail Patient feels he has improved with his balance and feels more confident with his walking. 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 Pt feels he is ready to return to work and plans to discuss this with the MD. Pain Assessment Timing of Pain Assessment Timing of Pain Assessment Assessment Self Report Self Report Pain Level 0 Pain Score Pain Score 0: Self Report Lower Extremity Muscle Strength Testing General Lower Extremity Strength Reason Not Measured WFL/Left,WFL/Right Gross Lower Extremity Strength tolerating 20 reps of LE and balance exercises with resistance w/o visible fatigue Balance Assessment Wilkinson Balance Assessment Sitting to Standing Independent w/out Hands Unsupported Stance Ability Safely- 2 minutes Sitting Unsupported, Feet on Floor Safely- 2 minutes Standing to Sitting Safely, Minimal Hand Use Transfer Ability Safely, Minimal Hand Use Unsupported Stance- Eyes Closed Safely, 10 seconds Unsupported Stance- Feet Together Independent, 1 minute Reaching Forward while Standing Confidently, 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
== END 2021-01-09 08:12 | disposition home or self-care (01) ==
LOC: ANHPT 12:30
PROVIDERS: PCP Family Medicine; Referring Provider Family Medicine; Visit Provider Physician Assistant
DX: R26.9 Unspecified abnormalities of gait and mobility (principal)
CPT/HCPCS: 97110; 97112; 97162; 97530

== ENCOUNTER 2021-07-05 14:02 | Day surgery (SDC) | payer OTHER, SELFPAY ==
--- NOTE | 2021-07-05 13:21 | HP_ITS ---
This report was moved to the correct visit, [id number] on 07/10/21. Original report was signed by Bradley Tucker MD on 07/05/21 1321. History of Present Illness History of Present Illness Consent: Risks, benefits, and alternatives have been discussed and questions answered. Patient agrees to proceed with procedure. Chief complaint: food bolus Narrative: Gregorio Acharya is a 55 year old male Who was eating a hot dog last night when it became lodged in his chest. He has been unable to swallow anything, even water since. He has mild discomfort in his mid chest. He recalls this happened several years ago after which she apparently had have an esophageal dilatation once. He is not currently on medicine for acid reflux which does complain of heartburn from time to time, more frequently lately Review of Systems Review of Systems: All systems reviewed & are unremarkable except as noted in HPI and below PMFSH Past Medical History Medical History Degenerative disc disease HFrEF (heart failure with reduced ejection fraction) Echo from 12/01/20 demonstrates EF 45-50% and normal diastolic function Seizure disorder Surgical History Surgical History Status post LASIK surgery of both eyes Family History Family History Mother Breast cancer Father Throat cancer Social History Social History Social History: the patient has never been . He has no children. His sister is a durable power state's attorney for healthcare. The patient desires to be a full code. Patient lives in house by himself. 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 The patient states that he is a lifelong nonsmoker. He denies any alcohol, marijuana, or illicit drug use. Smoking status: Never smoker Alcohol intake: never Substance use: never Spiritual care concerns: No Meds Home Medications and Allergies Home Medications Medication Instructions Recorded Confirmed Type lamotrigine 150 mg PO BID 11/30/20 07/05/21 History escitalopram oxalate 5 mg PO DAILY 07/05/21 07/05/21 History fluvoxamine 100 mg PO TID 07/05/21 07/05/21 History Allergies Allergy/AdvReac Type Severity Reaction Status Date / Time No Known Allergies Allergy Unknown Verified 07/05/21 13:07 Vital Signs Vital Signs - 24 hr 07/05/21 12:51 Temperature 36.6 C Pulse Rate 66 Respiratory Rate 12 Blood Pressure 140/60 Pulse Oximetry 98 Exam Resp: Auscultation: clear to auscultation bilaterally Cardio: Rate: regular rate Rhythm: regular rhythm GI: GI Palp: Yes Soft to palpation and No Tenderness to palpation present (GI) Assessment and Plan Assessment and plan (1) Dysphagia: Code(s): R13.10 - Dysphagia, unspecified Status: Acute Assessment and Plan: EGD with possible biopsy or dilatation or cautery. This dictation may have been done utilizing a voice recognition system. Attempts have been made to correct errors. However, there may be uncorrected grammatical, spelling, and recognition errors present. Report Initialized date/time: Bradley Tucker MD 07/05/211 Electronically signed by: Bradley Tucker MD 07/05/21 132 [facility]
[2021-07-05 13:22] VITALS: BMI 20.9
[2021-07-05 13:24] VITALS: BP 131/82; PULSE 60; RESP 18; TEMP 36.7; O2SAT 96
[2021-07-05] MEDS: LACTATED RINGERS 1,000 ML 150 ML IV CONT (13:29)
--- NOTE | 2021-07-05 13:36 | PN_ITS ---
This report was moved to the correct visit, [id number] on 07/10/21. Original report was signed by Dillon Skaggs MD on 07/05/21 3836. Anes - Initial Pre Proc Eval Procedure: Operation Date: 07/05/21 13:00 Proposed Procedures p Esophagogastroduodenoscopy - Bradley Tucker MD Date/Time: 07/05/21 13:36 Surgeon: Bradley Tucker MD Pre Op Diagnosis: food bolus Patient Data Age: 55 Gender: M Height: 1.63 m Weight: 55.2 kg Last Vital Signs Temp 97.9 F 07/05/21 12:51 Pulse 66 07/05/21 12:51 Resp 12 07/05/21 12:51 BP 140/60 07/05/21 12:51 Pulse Ox 98 07/05/21 12:51 Allergies Allergy/AdvReac Type Severity Reaction Status Date / Time No Known Allergies Allergy Unknown Verified 07/05/21 13:24 Home Medications Medication Instructions Recorded Confirmed Type lamotrigine 150 mg PO BID 11/30/20 07/05/21 History escitalopram oxalate 5 mg PO DAILY 07/05/21 07/05/21 History fluvoxamine 100 mg PO TID 07/05/21 07/05/21 History Patient hx anesthesia problems: none Family hx anesthesia problems: none Results Review: All pre-operative results and documents have been reviewed as part of the pre-operative evaluation. [facility] Past Medical History Medical History Degenerative disc disease HFrEF (heart failure with reduced ejection fraction) Echo from 12/01/20 demonstrates EF 45-50% and normal diastolic function Seizure disorder Surgical History Surgical History Status post LASIK surgery of both eyes Family History Family History Mother Breast cancer Father Throat cancer Social History Social History Social History: the patient has never been . He has no children. His sister is a durable power rail doweling machine operator for healthcare. The patient desires to be a full code. Patient lives in house by himself. 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 The patient states that he is a lifelong nonsmoker. He denies any alcohol, marijuana, or illicit drug use. Smoking status: Never smoker Alcohol intake: never Substance use: never Spiritual care concerns: No Anes - Eval Final PreProcedure Day of Procedure 07/05/21 13:36 Patient weight: normal Heart: regular rate and rhythm Lungs: clear to auscultation Airway: Mallampati scale class II Neurological: alert and oriented Last oral intake: >/= 8 hours ASA classification: III Emergent: no Anesthetic plan: proceed Anesthesia type and monitoring: general GIVS and standard monitoring Results Review: All pre-operative results and documents have been reviewed as part of the pre-operative evaluation. Informed Consent: The patient's anesthetic plan and its attendant risks and benefits were discussed with the patient/family/POA. Questions were solicited and answers provided to the satisfaction of the patient/family/POA. This dictation may have been done utilizing a voice recognition system. Attempts have been made to correct errors. However, there may be uncorrected grammatical, spelling, and recognition errors present. Report Initialized date/time: Dillon Skaggs MD 07/05/211335 Electronically signed by: Dillon Skaggs MD 07/05/211335 [facility]
--- NOTE | 2021-07-05 13:37 | PM.HPGS ---
History of Present Illness History of Present Illness Consent: Risks, benefits, and alternatives have been discussed and questions answered. Patient agrees to proceed with procedure. Chief complaint: food bolus Narrative: Gregorio Acharya is a 55 year old male who was eating a hot dog last night when he felt it get stuck. He has been unable to eat or drink anything since. Even drinking water is unsuccessful as it will shoot back out. A few years ago he had a similar situation and required endoscopy to remove the foreign body and later had an esophageal dilatation. He states he does get heartburn, more frequently lately but is not currently on medication for that Review of Systems Review of Systems: All systems reviewed & are unremarkable except as noted in HPI and below PMFSH Past Medical History Medical History Degenerative disc disease HFrEF (heart failure with reduced ejection fraction) Echo from 12/01/20 demonstrates EF 45-50% and normal diastolic function Seizure disorder Surgical History Surgical History Status post LASIK surgery of both eyes Family History Family History Mother Breast cancer Father Throat cancer Social History Social History Social History: the patient has never been . He has no children. His sister is a durable power school photographs detailer for healthcare. The patient desires to be a full code. Patient lives in house by himself. 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 The patient states that he is a lifelong nonsmoker. He denies any alcohol, marijuana, or illicit drug use. Smoking status: Never smoker Alcohol intake: never Substance use: never Spiritual care concerns: No Meds Home Medications and Allergies Home Medications Medication Instructions Recorded Confirmed Type lamotrigine 150 mg PO BID 11/30/20 07/05/21 History escitalopram oxalate 5 mg PO DAILY 07/05/21 07/05/21 History fluvoxamine 100 mg PO TID 07/05/21 07/05/21 History Allergies Allergy/AdvReac Type Severity Reaction Status Date / Time No Known Allergies Allergy Unknown Verified 07/05/21 13:24 Vital Signs Vital Signs - 24 hr 07/05/21 13:24 Temperature 36.7 C Pulse Rate 60 Respiratory Rate 18 Blood Pressure 131/82 Pulse Oximetry 96 Exam Resp: Auscultation: clear to auscultation bilaterally Cardio: Rate: regular rate Rhythm: regular rhythm GI: GI Palp: Yes Soft to palpation and No Tenderness to palpation present (GI) Assessment and Plan Assessment and plan (1) Dysphagia: Code(s): R13.10 - Dysphagia, unspecified Status: Acute Assessment and Plan: EGD with possible biopsy or dilatation or cautery.
[2021-07-05 14:28] VITALS: BP 131/80; PULSE 71; RESP 16; O2SAT 100
[2021-07-05 14:38] VITALS: BP 141/86; PULSE 73; RESP 18; O2SAT 100
[2021-07-05 14:48] VITALS: BP 129/85; PULSE 66; RESP 19; O2SAT 98
== END 2021-07-05 15:05 | disposition home or self-care (01) ==
PROVIDERS: Visit Provider Internal Medicine Gastroenterology
PROC: 0DJ08ZZ Inspection of Upper Intestinal Tract, Via Natural or Artificial Opening Endoscopic (ICD-10-PCS; CPT 43235; principal; 2021-07-05 13:00)
DX: K22.2 Esophageal obstruction (principal); T18.128A Food in esophagus causing other injury, initial encounter; K21.00 Gastro-esophageal reflux disease with esophagitis, without bleeding; K44.9 Diaphragmatic hernia without obstruction or gangrene; I50.9 Heart failure, unspecified; G40.909 Epilepsy, unspecified, not intractable, without status epilepticus
CPT/HCPCS: 43239; 43247; 88305; J7120

== ENCOUNTER 2021-08-13 00:42 | Day surgery (SDC) | payer OTHER, SELFPAY ==
[2021-08-02 08:45] VITALS: BMI 20.6
--- NOTE | 2021-08-10 14:32 | P.HP_ITS ---
History of Present Illness History of Present Illness Consent: Risks, benefits, and alternatives have been discussed and questions answered. Patient agrees to proceed with procedure. Chief complaint: esophageal stricture Narrative: Gregorio Acharya is a 55 year old male who is here for treatment of an esophageal stricture. He has been having dysphagia and in fact had impaction of the food bolus in June. Emergency endoscopy was done to remove the food bolus. He was found have severe esophagitis in the distal esophagus. Review of Systems Review of Systems: All systems reviewed & are unremarkable except as noted in HPI and below PMFSH Past Medical History Medical History Anxiety Degenerative disc disease Dysphagia Elevated blood pressure reading Esophageal stricture HFrEF (heart failure with reduced ejection fraction) Echo from 12/01/20 demonstrates EF 45-50% and normal diastolic function Seizure disorder Syringomyelia Surgical History Surgical History Status post LASIK surgery of both eyes Family History Family History Mother Breast cancer Father Throat cancer Social History Social History Social History: the patient has never been . He has no children. His sister is a durable power civil rights attorney for healthcare. The patient desires to be a full code. Patient lives in house by himself. 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 The patient states that he is a lifelong nonsmoker. He denies any alcohol, marijuana, or illicit drug use. Smoking status: Never smoker Alcohol intake: never Substance use: never Substance use type: does not use Living arrangements: alone Spiritual care concerns: No Meds Home Medications and Allergies Home Medications Medication Instructions Recorded Confirmed Type lamotrigine 150 mg PO BID 11/30/20 08/02/21 History escitalopram oxalate 5 mg PO DAILY 07/05/21 08/02/21 History fluvoxamine 100 mg PO TID 07/05/21 08/02/21 History omeprazole 40 mg PO DAILY #30 cap 07/05/21 08/02/21 Rx lisinopril 2.5 mg PO DAILY 08/02/21 08/02/21 History metoprolol succinate 25 mg PO DAILY 08/02/21 08/02/21 History Allergies Allergy/AdvReac Type Severity Reaction Status Date / Time No Known Allergies Allergy Unknown Verified 08/13/21 09:32 Exam Resp: Auscultation: clear to auscultation bilaterally Cardio: Rate: regular rate Rhythm: regular rhythm GI: GI Palp: Yes Soft to palpation and No Tenderness to palpation present (GI) Assessment and Plan Assessment and plan (1) Esophageal stricture: Code(s): K22.2 - Esophageal obstruction Status: Acute Assessment and Plan: EGD with possible biopsy or dilatation or cautery.
--- NOTE | 2021-08-13 08:05 | WPDANESEPPF ---
Anes - Initial Pre Proc Eval Procedure: Operation Date: 08/13/21 10:30 Proposed Procedures p Esophagogastroduodenoscopy - Bradley Tucker MD Date/Time: 08/13/21 08:05 Surgeon: Bradley Tucker MD Pre Op Diagnosis: esophageal stricture Patient Data Age: 55 Gender: M Height: 1.63 m Weight: 54.6 kg Allergies Allergy/AdvReac Type Severity Reaction Status Date / Time No Known Allergies Allergy Unknown Verified 08/13/21 09:32 Home Medications Medication Instructions Recorded Confirmed Type lamotrigine 150 mg PO BID 11/30/20 08/02/21 History escitalopram oxalate 5 mg PO DAILY 07/05/21 08/02/21 History fluvoxamine 100 mg PO TID 07/05/21 08/02/21 History omeprazole 40 mg PO DAILY #30 cap 07/05/21 08/02/21 Rx lisinopril 2.5 mg PO DAILY 08/02/21 08/02/21 History metoprolol succinate 25 mg PO DAILY 08/02/21 08/02/21 History Patient hx anesthesia problems: none Family hx anesthesia problems: none Results Review: All pre-operative results and documents have been reviewed as part of the pre-operative evaluation. [facility] Past Medical History Medical History (Updated 08/13/21 @ 08:07 by Kashmir pAple MD) Anxiety Degenerative disc disease Dysphagia Elevated blood pressure reading Esophageal stricture HFrEF (heart failure with reduced ejection fraction) Echo from 12/01/20 demonstrates EF 45-50% and normal diastolic function Seizure disorder Syringomyelia Surgical History Surgical History Status post LASIK surgery of both eyes Family History Family History Mother Breast cancer Father Throat cancer Social History Social History Social History: the patient has never been . He has no children. His sister is a durable power construction producer for healthcare. The patient desires to be a full code. Patient lives in house by himself. 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 He denies any alcohol, marijuana, or illicit drug use. Smoking status: Never smoker Alcohol intake: never Substance use: never Substance use type: does not use Living arrangements: alone Spiritual care concerns: No Anes - Eval Final PreProcedure Day of Procedure 08/13/21 08:05 Patient weight: normal Heart: regular rate and rhythm Lungs: clear to auscultation and normal air movement Airway: Mallampati scale class II Neurological: alert and oriented Last oral intake: >/= 8 hours ASA classification: III Emergent: no Anesthetic plan: proceed Anesthesia type and monitoring: general GIVS Results Review: All pre-operative results and documents have been reviewed as part of the pre-operative evaluation. Informed Consent: The patient's anesthetic plan and its attendant risks and benefits were discussed with the patient/family/POA. Questions were solicited and answers provided to the satisfaction of the patient/family/POA.
[2021-08-13 09:33] VITALS: BP 140/68; PULSE 57; RESP 18; TEMP 36.2; O2SAT 98
[2021-08-13] MEDS: LACTATED RINGERS 1,000 ML 150 ML IV CONT (09:44)
[2021-08-13 10:11] VITALS: BP 124/76; PULSE 91; RESP 18; O2SAT 99
[2021-08-13 10:21] VITALS: BP 96/53; PULSE 57; RESP 14; O2SAT 96
[2021-08-13 10:31] VITALS: BP 113/74; PULSE 63; RESP 23; O2SAT 100
== END 2021-08-13 10:45 | disposition home or self-care (01) ==
PROVIDERS: PCP Family Medicine; Visit Provider Internal Medicine Gastroenterology
PROC: 0DJ08ZZ Inspection of Upper Intestinal Tract, Via Natural or Artificial Opening Endoscopic (ICD-10-PCS; CPT 43235; principal; 2021-08-13 10:30)
DX: K22.2 Esophageal obstruction (principal); K44.9 Diaphragmatic hernia without obstruction or gangrene; K21.00 Gastro-esophageal reflux disease with esophagitis, without bleeding; I50.9 Heart failure, unspecified; G40.909 Epilepsy, unspecified, not intractable, without status epilepticus; F41.9 Anxiety disorder, unspecified
CPT/HCPCS: 43249; 88305; C1726; J2704; J7120

== ENCOUNTER → 2023-02-03 15:50 | Outpatient (CLI) | payer BC, SELFPAY ==
--- NOTE | ~2023-02-03 | XR_ITS ---
EXAMINATION: XR lumbar spine 2-3V DATE: 02/03/2023 16:39 INDICATION: Low back pain TECHNIQUE: Anteroposterior and lateral views of the lumbar spine, and cone-down lateral view of the l umbosacral junction were obtained. COMPARISON: None. FINDINGS: Alignment is normal. Vertebral body heights are normal. Mild to moderate disc height loss at L3-L4 an d L5-S1 and mild disc height loss at L4-L5. Moderate facet osteoarthritis in the mid to lower lumbar spine. Bilateral hip and sacroiliac joints are relatively preserved. Moderate to large amount of stoo l throughout the colon including 7.6 cm ball of stool at the rectum. IMPRESSION: 1. Mild to moderate lumbar spondylosis. Reviewed, dictated and finalized at location A.
== END ==
PROVIDERS: PCP Family Medicine; Visit Provider Family Medicine
DX: M47.896 Other spondylosis, lumbar region (principal)
CPT/HCPCS: 72100

== ENCOUNTER 2023-09-25 08:54 | Outpatient (CLI) | payer BC, SELFPAY ==
--- NOTE | ~2023-09-25 | XR_ITS ---
XR hip BI 2V w AP pelvis DATE: 09/25/2023 09:14 INDICATION: Right hip pain. Fall 2 weeks ago. TECHNIQUE: AP pelvis. AP and lateral views of each hip. COMPARISON: None FINDINGS: No pelvic fracture or bone destruction. The pubic symphysis and sacroiliac joints are intac t. Hip joint spaces are symmetric and well preserved. No fracture, dislocation, avascular necrosis or varghese ne destruction of either hip is detected. IMPRESSION: Negative pelvis and bilateral hips Reviewed, dictated and finalized at location L. ONARY PHYSICAL THERAPIST
== END 2023-09-25 08:55 | disposition home or self-care (01) ==
PROVIDERS: PCP Family Medicine; Visit Provider Family Medicine
DX: M25.551 Pain in right hip (principal); M25.552 Pain in left hip
CPT/HCPCS: 73521

== ENCOUNTER 2023-11-12 13:30 | Outpatient (RCR) | payer BC, SELFPAY ==
--- NOTE | 2023-10-02 09:53 | PTOPEVAL1 ---
Assessment and note entered by [facility] Evaluation Information Assessment Status Evaluation Diagnosis abnormalities of gait and mobility Onset 09/16/23 Subjective Information Pt. reports that he fell at home on 09/16/23. 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 He states that he is currently living with his sister. He states that he has fallen 10 times in the past month. He currently is experiencing some pain in the right thigh. He states that he has a hx of epilepsy. 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 He reports that he has been off work, due to his employer being worried about his falls. He reports that he is capable of completing all ADL's without assistance , but he does not drive limiting IADL performance. He reports that his goal for therapy is to be able to return to work. Reported Pain Level Pain Score 7: Self Report Assessment PT Clinical Summary Pt. is a 57 year old male who enters the clinic with impaired gait and balance, as well as pain at the right thigh following a recent fall. He has hx of epilepsy and congenital neurological disorder. He currently presents with impaired balance, impaired gait, impaired l.e. strength, pain and functional decline. Continued skilled PT is indicated in order to allow for improved safety and comfort in order for the pt. to return to work. Plan of Care Interventions Electrical Stimulation,Gait Training,Hot Pack/Cold Pack,Manual Therapy,Neuro Re-education,Patient/ Caregiver Educati,Therapeutic Activities, Therapeutic Exercise PT Services Indicated Yes Treatment Frequency and 2x/week x 10 visits Duration These treatments will address the objective and functional deficits as defined above. The patient will be advanced safely and appropriately in order for the patient to progress towards his/her prior level of function. Additional exercises will be introduced and as well as a comprehensive home exercise program upon discharge, if needed, ?to ensure carryover of functional gains achieved in the clinic. This treatment plan has been reviewed and agreement upon by the patient.
--- NOTE | 2023-10-02 09:54 | OPREHPOC ---
Outpatient Therapy Plan of Care This is a Multidisciplinary Plan of Care that may contain components documented by all disciplines (PT, OT, and ST.) PT Problem 1 PT Problem #1 Knowledge Deficit PT Goal 1 Goal Pt. will be independent with a HEP addressing hip mobility. Target Visit 2 PT Problem 2 PT Problem #2 Impaired Balance PT Goal 1 Goal Pt. will improve his tinetti score to 19 or greater indicating improved safety and function. Target Visit 10 PT Problem 3 PT Problem #3 Impaired Functional Mobil PT Goal 1 Goal Pt. will be able to safely navigate obstacles and uneven terrain for duration of 10 minutes independently in order to return to work. Target Visit 10 PT Problem 4 PT Problem #4 Pain PT Goal 1 Goal Pt. will reduce right thigh pain to 1/10 with prolonged standing activities. PT Problem 5 PT Problem #5 Impaired Functional Mobil PT Goal 1 Goal Pt. will improve his LEFS score by 30-40% indicating improved overall function. Target Visit 10
--- NOTE | 2023-10-13 11:20 | PCPTNOTE ---
Patient Cancelled secondary to Weather conditions.
--- NOTE | 2023-11-12 16:59 | PTOPDC ---
Assessment and note entered by [facility] Evaluation Information Assessment Status Discharge Diagnosis abnormalities of gait, and mobility Onset 09/16/23 Subjective Information Pt. reports he is doing better. He states that he was informed that he cannot return to work. He states that he has had 1 minor fall since beginning therapy. He states that he is exercising at home regularly. He states that he anticipates that he will keep moving because he does not want to end up in the condition that he was prior to therapy. Talking with the pt. sister she states that he is falling more frequently than he described. She states that she has inquired regarding a brace for his foot, but he doctor did not feel it was necessary. Reported Pain Level Pain Score 0: Self Report Pain Score 0: Self Report Additional Pain Score Comments Pt. complains of abdominal pain, but cannot elicit pain with palpation and pt. only notices pain when getting from the supine to sit position. Assessment PT Clinical Summary Pt. demonstrates improvements in overall balance and gait, despite continued falls. Pt. demonstrates much improved objective mobility on this date compared to the mobility that his sister described at home. While pt. does present with adequate dorsiflexion strength, he does have occasional toe drag on the left and may consider AFO. At this time encouraged the pt. to continue with his HEP and he will be discharged from our care at this time. Plan of Care PT Services Indicated No
== END 2023-11-13 09:14 | disposition home or self-care (01) ==
LOC: ANHPT 13:30
PROVIDERS: PCP Family Medicine; Visit Provider Family Medicine
DX: R26.89 Other abnormalities of gait and mobility (principal)
CPT/HCPCS: 97110; 97112; 97116; 97162; 97530

== ENCOUNTER 2024-12-09 12:03 | Outpatient (CLI) | payer BC, SELFPAY ==
--- OUTSIDE RECORDS SUMMARY | 2024-12-09 12:43 | XMS_ITS | CONTINUITY OF CARE DOCUMENT ---
Author Name bassam banegas Address Unknown Organization [facility] Address [address] [place] [address] Phone [phone] Care Team Providers Care Water Quality Control Engineer Name Role Phone Pee CARTER, Debbie Unavailable [phone] KYLE CARTER, BRITTANY Unavailable [phone] INSURANCE PROVIDERS Payer name Policy type / Coverage type [employer] party ID [facility] [employer] insurance JOOR [id number]
--- OUTSIDE RECORDS SUMMARY | 2024-12-09 12:43 | XMS_ITS | Clinical Summary ---
Author Organization [facility] Address [address] [place], [place] [address] [address] Care Team Providers Care Cardiac Nurse Name Role Phone Unavailable Primary Care Provider Unavailabl e Medications lamoTRIgine (LaMICtal) 150 mg tablet Take 2 tablets (300 mg total) by mouth daily 180 Tablet 3 08/20/2023 3:13 PM REPAIR WEAVER 08/04/2023 Active omeprazole (PriLOSEC) 40 mg Capsule, Delayed Release(E.C.) Take 1 Capsule (40 mg) by mouth daily. 90 Capsule 11/18/2023 10:55 AM REPAIR WEAVER 11/12/2023 Active lamoTRIgine (LaMICtal) 150 mg tablet TAKE 1 TABLET BY MOUTH TWICE DAILY 60 Tablet 11 11/12/2023 3:41 PM REPAIR WEAVER 11/08/2023 Active Encounters Date Type Department Care Team Description 12/01/2024 External Device Data [facility] ABSTRACTION Provider, Abstract 11/30/2024 External Device Data [facility] ABSTRACTION Provider, Abstract 11/29/2024 External Device Data [facility] ABSTRACTION Provider, Abstract 11/02/2024 External Device Data [facility] ABSTRACTION Provider, Abstract 11/02/2024 External Device Data [facility] ABSTRACTION Provider, Abstract 11/02/2024 External Device Data [facility] ABSTRACTION Provider, Abstract 10/26/2024 External Device Data [facility] ABSTRACTION Provider, Abstract from Last 3 Months Social History Tobacco Use Types Packs/Day Years Used Date Smoking Tobacco: Never Assessed Sex and Gender Information Value Date Recorded Sex Assigned at Not on file Legal Sex Male 3:27 PM CDT Gender Identity Not on file Sexual Orientation Not on file Plan of Treatment Health Maintenance Due Date Last Done Comments DTAP/TDAP/TD VACCINES (1 - Tdap) 1984 HEPATITIS B VACCINES (1 of 3 - 19+ 3-dose series) 1984 COLORECTAL SCREENING 2010 Colorectal Cancer Screening 2010 FIT-DNA Q 3 years 2010 FIT/FOBT Q 1 year 2010 Flex Sig/CT Colonography Q 5 years 2010 ZOSTER VACCINE (1 of 2) 2015 INFLUENZA VACCINE (#1) 2024 PNEUMOCOCCAL VACCINE 0-49 YEARS Aged Out No longer eligible based on patient's age to complete this topic Insurance [employer] (INTERNAL) [facility] [employer]
--- OUTSIDE RECORDS SUMMARY | 2024-12-09 12:43 | XMS_ITS | Clinical Summary ---
Author Organization [facility] Address [address] [place] [address] Care Team Providers Care Kid Club Attendant Name Role Phone Neville Masters MD Primary Care Provider [phone] Allergies No known active allergies Medications omeprazole (PriLOSEC) 40 mg capsule 2 Active melatonin 5 mg tablet Active lamoTRIgine (LaMICtal) 150 mg tablet Take 1 tablet (150 mg total) by mouth 2 (two) times a day 60 tablet 11 4 Active sertraline (ZOLOFT) 50 mg tablet TAKE 1& 1/2 TABLETS BY MOUTH DAILY 45 tablet 6 5 Active sertraline (ZOLOFT) 50 mg tablet Take 1 tablet (50 mg total) by mouth daily 45 tablet 6 4 12/10/19 25 Discontinued Active Problems Problem Noted Date Diagnosed Date Visual-spatial impairment 02/03/2024 Anxiety 02/03/2024 Assessment & Plan (02/03/2024 12:54 PM CDT): Increase sertraline/Zoloft to 75 mg daily for anxiety, will increase to 100 mg if no improvement Continue counseling Abnormal EEG 11/09/2023 Abnormal finding on MRI of brain 11/09/2023 At risk for side effect of medication 11/09/2023 Progressive dementia with uncertain etiology Assessment & Plan (02/03/2024 12:57 PM CDT): Onset 2012, cerebral spinal fluid not c/w AD, brain imaging from February of 2020 showed cerebral atrophy, greatest in the parietal lobes, followed by Dr. Obrien in Epilepsy,video EEG is suggestive these episodes are nonepileptic seizures, and likely related to his anxiety, and progressive dementia. He stopped working in August, due to progressive cognitive difficulties. 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 Less well controlled epilepsy. BMRI (3D) to compare with 2015; look for interval change. 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, intractable 01/24/2016 Seizure 06/14/2015 Memory loss 06/14/2015 Resolved Problems Problem Noted Date Diagnosed Date Resolved Date Driving safety issue 07/12/2020 024 Immunizations Immunization Administration Dates Next Due Influenza, Quadrivalent, Spl it, Preservative Free, Intramuscular 11/03/2023 Surgical History Surgery Date Site/Laterality Comments LASIK 09/22/2003 - 09/21/2004 Medical History Medical History Date Comments Epilepsy (HCC) 2011 1st GTC Sleepwalking ADHD (attention deficit hyperactivity disorder) OCD (obsessive compulsive disorder) Family History Medical History Relation Name Comments No Known Problems Mother Relation Name Status Comments Mother Social History Tobacco Use Types Packs/Day Years Used Date Smoking Tobacco: Never Smokeless Tobacco: Never Tobacco Cessation:Counseling Given: Not Answered PHQ-2 Answer Date Recorded PHQ-2 Total Score (If total score is 3 or more points, staff should administer the PHQ-9) 0 11/03/2023 Personal Safety Answer Date Recorded Have you ever been in or are you currently in a harmful physical or emotional relationship or is someone making you feel afraid or unsafe? Denies 11/03/2023 Sex and Gender Information Value Date Recorded Sex Assigned at Not on file Legal Sex Male 10:38 AM MISSING PERSONS INVESTIGATOR Gender Identity Male 12/01/2020 4:44 PM MISSING PERSONS INVESTIGATOR Sexual Orientation Straight 12/01/2020 4: 41 PM MISSING PERSONS INVESTIGATOR Obstetrics History Last Filed Vital Signs Vital Sign Reading Time Taken Comments Blood Pressure 112/72 02/03/2024 12:09 PM CDT Pulse 75 02/03/2024 12:09 PM CDT Temperature 36.8 C (98.3 F) 02/03/2024 12:09 PM CDT Respiratory Rate 18 11/09/2023 8:02 AM MISSING PERSONS INVESTIGATOR Oxygen Saturation 95% 02/03/2024 12:09 PM CDT Inhaled Oxygen Concentration - - Weight 61.2 kg (135 lb) 02/03/2024 12:09 PM CDT Height 162.6 cm (5' 4 ) 02/03/2024 12:09 PM CDT Body Mass Index 23.17 02/03/2024 12:09 PM CDT Plan of Treatment Health Maintenance Due Date Last Done Comments Colon Cancer Screening-Colonoscopy 1965 Hepatitis C Screening 1965 Prostate Cancer Screening-PSA 1965 Hepatitis B Screening 1983 Regular Well Visit/Exam 18-64 1983 Zoster Vaccine (1 of 2) 2015 Influenza Vaccine (#1) 2024 , 07/19/2015 Depression Screening 10/30/2024 10/30/2023 DTaP/Tdap/Td Vaccine (3 - Td or Tdap) 04/05/2026 04/05/2016, 05/18/2014 Pneumococcal vaccine <65 Aged Out No longer eligible based on patient's age to complete this topic Insurance [facility] ACCESS CHOICE [facility] [place] [address] [facility] ACCESS CHOICE Advance Directives For more information, please contact: [phone] * Full Code (Latest Code Status on File) Date Activated Date Inactivated Comments 11/03/2023 9:16 AM 11/09/2023 5:00 PM Care Teams Kid Club Attendant Relationship Specialty Start Date End Date Neville Masters MD [address] [place] [id number] PCP - General Family Medicine 01/22/18
--- OUTSIDE RECORDS SUMMARY | 2024-12-09 12:43 | XMS_ITS | Referral Summary ---
Author Organization [facility] Address [address] [place] [address] Care Team Providers Care Television Station Manager Name Role Phone Neville Masters MD Primary Care Provider [phone] Allergies No known active allergies Medications omeprazole [...] Therapy Recommended adult day program, met with Sheepskin Pickler Valencia Patel for resources and support Assessment [...] Quadrivalent, Spl it, Preservative Free, Intramuscular 11/03/2023 Social History Tobacco Use Types Packs/Day Years [...] on file Legal Sex Male 10:38 AM SHIP WORKER Gender Identity Male 12/01/2020 4:44 PM SHIP WORKER Sexual Orientation Straight 12/01/2020 4: 41 PM SHIP WORKER Last Filed Vital Signs Vital Sign Reading Time Taken Comments Blood Pressure 112/72 02/03/2024 12:09 PM CDT Pulse 75 02/03/2024 12:09 PM CDT Temperature 36.8 C (98.3 F) 02/03/2024 12:09 PM CDT Respiratory Rate 18 11/09/2023 8:02 AM SHIP WORKER Oxygen Saturation 95% 02/03/2024 12:09 PM CDT Inhaled Oxygen Concentration - - Weight 61.2 kg (135 lb) 02/03/2024 12:09 PM CDT Height 162.6 cm (5' 4 ) 02/03/2024 12:09 PM CDT Body Mass Index 23.17 02/03/2024 12:09 PM CDT Plan of Treatment Not on file [facility] [place] [place] [address] [facility] ACCESS CHOICE Advance Directives For more information, please contact: [phone] * Full Code (Latest Code Status on File) Date Activated Date Inactivated Comments 11/03/2023 9:16 AM 11/09/2023 5:00 PM Care Teams Television Station Manager Relationship Specialty Start Date End Date Logurmeetn, Neville D., MD [address] [place] [id number] PCP - General Family Medicine 01/22/18
== END 2024-12-09 12:04 | disposition home or self-care (01) ==
LOC: ANHLAB 12:05
PROVIDERS: PCP Family Medicine; Visit Provider Psychiatry & Neurology Neurology
DX: F03.90 Unspecified dementia, unspecified severity, without behavioral disturbance, psychotic disturbance, mood disturbance, and anxiety (principal); G40.909 Epilepsy, unspecified, not intractable, without status epilepticus
CPT/HCPCS: 36415; 81271

== ENCOUNTER 2025-01-05 08:31 | Outpatient (CLI) | payer BC, SELFPAY ==
--- OUTSIDE RECORDS SUMMARY | 2025-01-05 08:49 | XMS_ITS | Clinical Summary ---
Author Organization [facility] Address [address] [place] [address] Care Team Providers Care Director Financial Planning Name Role Phone Neville Masters MD Primary Care Provider [phone] Allergies No known active allergies Medications omeprazole [...] Therapy Recommended adult day program, met with Terminal Operator Valencia Patel for resources and support Assessment [...] on file Legal Sex Male 10:38 AM WALLPAPER CONSULTANT Gender Identity Male 12/01/2020 4:44 PM WALLPAPER CONSULTANT Sexual Orientation Straight 12/01/2020 4: 41 PM WALLPAPER CONSULTANT Obstetrics History Last Filed Vital Signs Vital Sign Reading Time Taken Comments Blood Pressure 112/72 02/03/2024 12:09 PM CDT Pulse 75 02/03/2024 12:09 PM CDT Temperature 36.8 C (98.3 F) 02/03/2024 12:09 PM CDT Respiratory Rate 18 11/09/2023 8:02 AM WALLPAPER CONSULTANT Oxygen Saturation 95% 02/03/2024 12:09 PM CDT [...] patient's age to complete this topic Insurance [facility] ACCESS CHOICE [facility] [place] [address] [place] [address] [facility] ACCESS CHOICE Advance Directives For more information, please contact: [phone] * Full Code (Latest Code Status on File) Date Activated Date Inactivated Comments 11/03/2023 9:16 AM 11/09/2023 5:00 PM Care Teams Director Financial Planning Relationship Specialty Start Date End Date Neville Masters MD [address] [place] [id number] PCP - General Family Medicine 01/22/18
--- OUTSIDE RECORDS SUMMARY | 2025-01-05 08:49 | XMS_ITS | Referral Summary ---
Author Organization [facility] Address [address] [place] [address] Care Team Providers Care Administrative Operations Coordinator Name Role Phone Neville Masters MD Primary Care Provider [phone] Allergies No known active allergies Medications omeprazole [...] Therapy Recommended adult day program, met with Dietetic Technician Registered Valencia Patel for resources and support Assessment [...] on file Legal Sex Male 10:38 AM CUT FILER Gender Identity Male 12/01/2020 4:44 PM CUT FILER Sexual Orientation Straight 12/01/2020 4: 41 PM CUT FILER Last Filed Vital Signs Vital Sign Reading Time Taken Comments Blood Pressure 112/72 02/03/2024 12:09 PM CDT Pulse 75 02/03/2024 12:09 PM CDT Temperature 36.8 C (98.3 F) 02/03/2024 12:09 PM CDT Respiratory Rate 18 11/09/2023 8:02 AM CUT FILER Oxygen Saturation 95% 02/03/2024 12:09 PM CDT Inhaled Oxygen Concentration - - Weight 61.2 kg (135 lb) 02/03/2024 12:09 PM CDT Height 162.6 cm (5' 4 ) 02/03/2024 12:09 PM CDT Body Mass Index 23.17 02/03/2024 12:09 PM CDT Plan of Treatment Not on file [facility] [place] [address] [facility] ACCESS CHOICE Advance Directives For more information, please contact: [phone] * Full Code (Latest Code Status on File) Date Activated Date Inactivated Comments 11/03/2023 9:16 AM 11/09/2023 5:00 PM Care Teams Administrative Operations Coordinator Relationship Specialty Start Date End Date Logurmeetn, Neville D., MD [address] [place] [id number] PCP - General Family Medicine 01/22/18
--- OUTSIDE RECORDS SUMMARY | 2025-01-05 08:49 | XMS_ITS | CONTINUITY OF CARE DOCUMENT ---
Author Name bassam banegas Address Unknown Organization [facility] Address [address] [place] [address] Phone [phone] Care Team Providers Care Gas Leak Inspector Helper Name Role Phone Pee CARTER, Debbie Unavailable KYLE CARTER, BRITTANY Unavailable [phone] INSURANCE PROVIDERS Payer name Policy type / Coverage type [place] red libertarian ID [facility] [employer] insurance [employer] [id number]
--- OUTSIDE RECORDS SUMMARY | 2025-01-05 08:49 | XMS_ITS | Clinical Summary ---
Author Organization [facility] Address [address] [place], [place] [address] [address] Care Team Providers Care Manufacturer'S Representative Name Role Phone Unavailable Primary Care Provider Unavailabl e Medications lamoTRIgine (LaMICtal) 150 mg tablet Take 2 tablets (300 mg total) by mouth daily 180 Tablet 3 08/20/2023 3:13 PM LEARNING CENTER COORDINATOR 08/04/2023 Active omeprazole (PriLOSEC) 40 mg Capsule, Delayed Release(E.C.) Take 1 Capsule (40 mg) by mouth daily. 90 Capsule 11/18/2023 10:55 AM LEARNING CENTER COORDINATOR 11/12/2023 Active lamoTRIgine (LaMICtal) 150 mg tablet TAKE 1 TABLET BY MOUTH TWICE DAILY 60 Tablet 11 11/12/2023 3:41 PM LEARNING CENTER COORDINATOR 11/08/2023 Active Encounters Date Type Department Care [...]
--- NOTE | 2025-01-06 12:08 | WPDNEUROLOGY ---
Neurology EEG Report General Information Date of Study: 01/05/25 TEST Electroencephalogram DIAGNOSIS seizure disorder CONDITION OF RECORDING neurodiagnostic lab EEG NUMBER 25-51 CLINICAL HISTORY History of physical trauma and seizure disorder EEG DESCRIPTION During wakefulness the background activity consists of posterior dominant alpha rhythm at 8 hertz with an amplitude of 15-35 microvolts which appears mildly formed. Anteriorly low amplitude mixed frequency activity was seen. There is a mild anteroposterior gradient. Patient did not progress to stage 2 sleep. Photic stimulation was performed during which no significant abnormal background changes were seen. Hyperventilation not performed. IMPRESSION This is a normal EEG obtained during awake state.
[2025-01-08 22:44] LABS: Lamotrigine Lamictal 9.9 mcg/mL (2.5-15.0)
== END 2025-01-05 08:32 | disposition home or self-care (01) ==
PROVIDERS: PCP Family Medicine; Visit Provider Psychiatry & Neurology Neurology
DX: G40.909 Epilepsy, unspecified, not intractable, without status epilepticus (principal); Z87.828 Personal history of other (healed) physical injury and trauma
CPT/HCPCS: 36415; 80175; 95816